=== PATIENT | female | born 1985 | race Caucasian/White ===

== ENCOUNTER → 2025-03-31 | Outpatient (CLI) | payer MEDICAID, SELFPAY ==
--- NOTE | 2025-03-31 13:30 | XR_ITS ---
EXAMINATION: Ultrasound soft tissue extremity left arm TECHNIQUE: Grayscale sonographic images soft tissue left upper arm Date and time: March 31, 2025, 1409 hours INDICATIONS: control device implanted in the arm 2014, preop for removal FINDINGS: Linear hyperechoic structure in the soft tissue inner left biceps muscle near the elbow IMPRESSION: Positive for foreign body as above
== END | disposition home or self-care (01) ==
LOC: CDIM 13:54
PROVIDERS: PCP Physician Assistant; Referring Provider Physician Assistant; Visit Provider Physician Assistant
DX: S40.852A Superficial foreign body of left upper arm, initial encounter (principal); X58.XXXA Exposure to other specified factors, initial encounter
CPT/HCPCS: 76882

== ENCOUNTER → 2025-04-02 | Outpatient (CLI) | payer MEDICAID, SELFPAY ==
--- NOTE | 2025-04-02 09:49 | XR_ITS ---
Examination: Breast ultrasound, unilateral, right complete Date and time of exam: April 02, 2025, 1021 hours INDICATIONS: Palpable lump right breast with tenderness in the 10 o'clock position 1 month Technique: Real-time barba scale ultrasonographic imaging performed right breast including all 4 quadrants as well as nipple retroareolar and axillary region. Findings: 7:00 mass lobular margins 8 x 6 mm 10:00 cyst 28 x 30 mm IMPRESSION: BI-RADS Category 3: Probably benign findings 1 additional 6-month right breast sonogram follow-up is needed to document stability of 7:00 nodule described above Multiple benign cysts, the largest in the 10 o'clock position 28 x 30 mm
== END | disposition home or self-care (01) ==
PROVIDERS: PCP Physician Assistant; Referring Provider Physician Assistant; Visit Provider Physician Assistant
DX: N63.10 Unspecified lump in the right breast, unspecified quadrant (principal); N63.13 Unspecified lump in the right breast, lower outer quadrant; N60.01 Solitary cyst of right breast
CPT/HCPCS: 76641